=== PATIENT | male | born 1950 | race Caucasian/White ===

== ENCOUNTER 2017-07-19 01:19 | Observation (INO) ==
[2017-07-19] MEDS ORDERED: 0.9 % Sodium Chloride 500 ML IVC ONE (01:32)
[2017-07-19] MEDS ORDERED: Nitroglycerin 0.4 MG TAB.SUBL SL ONE (01:32)
--- NOTE | 2017-07-19 01:38 | Emergency Department Note ---
Disposition Clinical Impression: Unstable angina pectoris Disposition: Admitted As Inpatient Condition: Fair Referrals: NONE,PCP [Primary Care Provider] - Syed Wisdom [Family Provider] - Forms: ED Satisfaction Letter Time of Disposition: 02:30 Chest Pain HPI - General Chief Complaint: ED Chest Pain Stated Complaint: cp/sob Time Seen by Provider: 07/19/17 01:31 Source: patient Mode of arrival: ambulatory Limitations: no limitations Vital Signs Reviewed: Yes Nursing Notes Reviewed: Yes - History of Present Illness HPI Narrative: Patient presents to the ED with the chief complaint of chest pain and dyspnea. Patient has a remote history of WI about 10 years ago which did not require stent placement. States that a week ago he sneezed and he states that it felt like a hammer hit him in the middle of his chest. Ever since then he has been having the faculty managing his blood pressure has been having intermittent chest heaviness and tightness retrosternal and nonradiating. This is associated with shortness of breath, nausea and diaphoresis at times. States he does not remember what he felt like last time that he just does not feel right. Reports that it has been getting worse. He states that tonight he has been "popping aspirin." Stating that every time his blood pressure gets up, his pain gets worse and he takes an aspirin to try to get it down and it has not seemed to help. He is unsure how many aspirin is taken today. No melena, hematochezia, or hemoptysis. No fever, cough, or abdominal pain. No vomiting. Severity scale (1-10): 9 - Related Data Allergies Allergy/AdvReac Type Severity Reaction Status Date / Time No Known Allergies Allergy Verified 07/19/17 01:21 Review of Systems: As reviewed in the HPI. All other systems reviewed are negative or normal. Constitutional: Reports: as per HPI Eyes: Reports: as per HPI Cardiovascular: Reports: as per HPI Chest Pain PMH - Past Medical History Medical history: Reports: hypertension, myocardial infarction Psychiatric history: Reports: no psych history - Social History Smoking Status: Never smoker Alcohol use: Reports: none Drug use: Reports: none Physical Exam - General Limitations: no limitations General appearance: alert, in no apparent distress, other (Patient appears unwell) - Head Head exam: atraumatic, normocephalic, normal inspection - Eye Eye exam: Present: normal appearance, PERRL, EOMI - ENT ENT exam: normal exam, normal oropharynx, mucous membranes moist - Neck Neck exam: Present: normal inspection, full ROM, trachea midline - Chest Chest inspection: Present: normal inspection, symmetric chest wall rise - Respiratory Respiratory exam: Present: normal lung sounds bilaterally - Cardiovascular Cardiovascular exam: Present: regular rate, normal rhythm, normal heart sounds - Abdominal Exam Abdominal exam: Present: soft, Non-Tender. Absent: tenderness, distention, guarding, rebound, rigidity - Extremities Exam Extremities exam: Present: normal inspection, full ROM. Absent: tenderness, pedal edema - Neurological Exam Neurological exam: Present: alert, oriented X3 - Psychiatric Psychiatric exam: Present: normal affect, normal mood - Skin Skin exam: Present: warm, dry, intact, normal color Course Course Narrative: Patient presenting with concerning chest pain for ACS. Also complaining of some shortness of breath, so we will add on a d-dimer. Initial EKG is concerning for developing inferior ischemia. We will obviously check labs, repeat EKG and chest x-ray. We will give him nitroglycerin to see if this improves his pain. Patient does report that he is already taking multiple baby aspirins today, which seems to have totally well over his necessary dose so we will not give any additional aspirin. - Reevaluation(s) Reevaluation #1: 3 nitroglycerin the patient's pain from a 10 to a 2. We will admit. Troponins normal. EKG certainly did have concerning changes and patient will likely need heart catheter in the morning. Vital Signs Temperature 98.3 F 07/19/17 01:21 Pulse Rate 70 07/19/17 01:21 Respiratory Rate 16 07/19/17 01:21 Blood Pressure 167/95 07/19/17 01:21 O2 Sat by Pulse Oximetry 97 07/19/17 01:21 Temperature 98.3 F 07/19/17 01:21 Pulse Rate 63 07/19/17 01:42 Respiratory Rate 16 07/19/17 01:21 Blood Pressure 159/97 07/19/17 02:05 O2 Sat by Pulse Oximetry 97 07/19/17 01:42 Oxygen Delivery Oxygen Delivery Nasal Cannula Chest Pain - Medical Records Medical records reviewed: Yes I reviewed the patient's medical records. - Lab Data Lab results reviewed: Yes I reviewed the patient's lab results. Result diagrams: 07/19/17 01:36 07/19/17 01:36 Lab Results 07/19/17 07/19/17 07/19/17 Range/Units 01:36 01:36 01:36 WBC 13.6 H (4.3-11.1) K/mcL RBC 5.40 (4.19-5.50) M/mcL Hgb 15.8 (12.9-16.9) g/dL Hct 45.6 (37.5-50.1) % MCV 84.4 (83.0-100.0) fL MCH 29.3 (28.0-33.3) pg MCHC 34.6 (31.6-35.5) g/dL RDW 13.6 (11.5-14.5) % Plt Count 260 (140-400) K/mcL MPV 9.7 (9.4-12.4) fL Immature Gran % 0.3 (0-4) % Seg Neutrophils % 63.7 % Lymphocytes % 26.1 % Monocytes % 6.0 % Eosinophils % 3.3 % Basophils % 0.6 % Neutrophils # 8.7 (1.6-8.9) K/mcL Lymphocytes # 3.6 (0.6-4.6) K/mcL Monocytes # 0.8 (0.0-1.3) K/mcL Eosinophils # 0.5 (0.0-0.6) K/mcL Basophils # 0.1 (0.0-0.2) K/mcL PT 11.2 (9.4-12.1) Seconds INR 1.0 APTT 29.7 (26.0-36.0) Seconds D-Dimer 403 (0-500) ng/mLFEU Sodium (136-145) mEq/L Potassium (3.5-5.1) mEq/L Chloride (98-107) mEq/L Carbon Dioxide (23-29) mEq/L BUN (8-23) mg/dL Creatinine (0.70-1.30) mg/dL Est GFR ( Amer) (> 60) Est GFR (Non-Af Amer) (> 60) BUN/Creatinine Ratio (6-26) Glucose (70-105) mg/dL Calculated Osmolality (280-300) Calcium (8.6-10.3) mg/dL Troponin I (< 0.04) ng/mL B-Natriuretic Peptide 33 (Less than 100) pg/mL 07/19/17 Range/Units 01:36 WBC (4.3-11.1) K/mcL RBC (4.19-5.50) M/mcL Hgb (12.9-16.9) g/dL Hct (37.5-50.1) % MCV (83.0-100.0) fL MCH (28.0-33.3) pg MCHC (31.6-35.5) g/dL RDW (11.5-14.5) % Plt Count (140-400) K/mcL MPV (9.4-12.4) fL Immature Gran % (0-4) % Seg Neutrophils % % Lymphocytes % % Monocytes % % Eosinophils % % Basophils % % Neutrophils # (1.6-8.9) K/mcL Lymphocytes # (0.6-4.6) K/mcL Monocytes # (0.0-1.3) K/mcL Eosinophils # (0.0-0.6) K/mcL Basophils # (0.0-0.2) K/mcL PT (9.4-12.1) Seconds INR APTT (26.0-36.0) Seconds D-Dimer (0-500) ng/mLFEU Sodium 139 (136-145) mEq/L Potassium 3.9 (3.5-5.1) mEq/L Chloride 107 (98-107) mEq/L Carbon Dioxide 23 (23-29) mEq/L BUN 12 (8-23) mg/dL Creatinine 0.90 (0.70-1.30) mg/dL Est GFR ( Amer) > 60 (> 60) Est GFR (Non-Af Amer) > 60 (> 60) BUN/Creatinine Ratio 13 (6-26) Glucose 98 (70-105) mg/dL Calculated Osmolality 288 (280-300) Calcium 9.2 (8.6-10.3) mg/dL Troponin I < 0.03 (< 0.04) ng/mL B-Natriuretic Peptide (Less than 100) pg/mL - Radiology Data Radiology results reviewed: Yes I reviewed the patient's radiology results. - EKG Data EKG attestation: Yes I reviewed and interpreted this EKG. EKG results narrative: Sinus rhythm, rate 77, NE interval 146, QRS 89, QTC 390, deep inverted T waves in lead 1 and aVL with some ST segment depression in lead 1 and laterally. Repeat EKG @ 01:45 shows worsening depression in lead 1 and aVL as well as just under 1 mm elevation in lead 3. Does not meet STEMI criteria at this point. However, if his pain changes or does not improve we will repeat an EKG. Heart Score - Score History: Highly Suspicious EKG: Significant ST-Depression Age: 45-65 Risk Factors: Equal/Greater than 3 risk factor or history of atherosclerotic disease Troponin: Less than normal limit HEART Score Total: 7
[2017-07-19 01:48] LABS: Basophils # 0.1 K/mcL (0.0-0.2); Basophils % 0.6 %; Eosinophils # 0.5 K/mcL (0.0-0.6); Eosinophils % 3.3 %; Hematocrit 45.6 % (37.5-50.1); Hemoglobin 15.8 g/dL (12.9-16.9); Immature Granulocytes % 0.3 % (0-4); Lymphocytes # 3.6 K/mcL (0.6-4.6); Lymphocytes % 26.1 %; Mean Corpuscular HGB Conc 34.6 g/dL (31.6-35.5); Mean Corpuscular Hemoglobin 29.3 pg (28.0-33.3); Mean Corpuscular Volume 84.4 fL (83.0-100.0); Mean Platelet Volume 9.7 fL (9.4-12.4); Monocytes # 0.8 K/mcL (0.0-1.3); Neutrophils # 8.7 K/mcL (1.6-8.9); Platelet Count 260 K/mcL (140-400); Red Cell Distribution Width 13.6 % (11.5-14.5); Segmented Neutrophils % 63.7 %
[2017-07-19 01:55] LABS: Prothrombin Time 11.2 Seconds (9.4-12.1)
[2017-07-19 01:57] LABS: Activated Partial Thrombo Time 29.7 Seconds (26.0-36.0)
[2017-07-19 02:09] LABS: BUN/Creatinine Ratio 13 (6-26); Blood Urea Nitrogen 12 mg/dL (8-23); Calcium 9.2 mg/dL (8.6-10.3); Carbon Dioxide 23 mEq/L (23-29); Chloride 107 mEq/L (98-107); Glucose 98 mg/dL (70-105); Osmolality,Calculated 288 (280-300); Potassium 3.9 mEq/L (3.5-5.1); Sodium 139 mEq/L (136-145); eGFR For African Americans > 60 (> 60); eGFR For Non-African Americans > 60 (> 60)
[2017-07-19 02:10] LABS: Troponin I < 0.03 ng/mL (< 0.04)
[2017-07-19 02:38] LABS: Salicylate < 2.5 mg/dL (15.0-30.0)
--- NOTE | 2017-07-19 03:16 | Emergency Department Note ---
Disposition Clinical Impression: Unstable angina pectoris Disposition: Admitted As Inpatient Condition: Fair General Adult HPI - General Chief complaint: ED Chest Pain Stated complaint: cp/sob Time Seen by Provider: 07/19/17 01:31 Source: patient Mode of arrival: ambulatory Limitations: no limitations Nursing Notes Reviewed: Yes Vital Signs Reviewed: Yes - History of Present Illness Pain Scale: 9 - Related Data Allergies Allergy/AdvReac Type Severity Reaction Status Date / Time No Known Allergies Allergy Verified 07/19/17 01:21 Constitutional: Reports: as per HPI Eyes: Reports: as per HPI Cardiovascular: Reports: as per HPI Past Medical History - Past Medical History Medical history: Reports: hypertension, myocardial infarction Psychiatric history: Reports: no psych history - Social History Smoking Status: Never smoker Smokeless Tobacco Status: No Alcohol use: Reports: none Drug use: Reports: none Physical Exam - General Limitations: no limitations General appearance: alert, in no apparent distress, other (Patient appears unwell) Course Vital Signs Temperature 98.3 F 07/19/17 01:21 Pulse Rate 70 07/19/17 01:21 Respiratory Rate 16 07/19/17 01:21 Blood Pressure 167/95 07/19/17 01:21 O2 Sat by Pulse Oximetry 97 07/19/17 01:21 Temperature 98.3 F 07/19/17 01:21 Pulse Rate 63 07/19/17 01:42 Respiratory Rate 16 07/19/17 01:21 Blood Pressure 159/97 07/19/17 02:05 O2 Sat by Pulse Oximetry 97 07/19/17 01:42 Oxygen Delivery Oxygen Delivery Nasal Cannula Medical Decision Making - Lab Data Result diagrams: 07/19/17 01:36 07/19/17 01:36 Lab Results 07/19/17 07/19/17 07/19/17 Range/Units 01:36 01:36 01:36 WBC 13.6 H (4.3-11.1) K/mcL RBC 5.40 (4.19-5.50) M/mcL Hgb 15.8 (12.9-16.9) g/dL Hct 45.6 (37.5-50.1) % MCV 84.4 (83.0-100.0) fL MCH 29.3 (28.0-33.3) pg MCHC 34.6 (31.6-35.5) g/dL RDW 13.6 (11.5-14.5) % Plt Count 260 (140-400) K/mcL MPV 9.7 (9.4-12.4) fL Immature Gran % 0.3 (0-4) % Seg Neutrophils % 63.7 % Lymphocytes % 26.1 % Monocytes % 6.0 % Eosinophils % 3.3 % Basophils % 0.6 % Neutrophils # 8.7 (1.6-8.9) K/mcL Lymphocytes # 3.6 (0.6-4.6) K/mcL Monocytes # 0.8 (0.0-1.3) K/mcL Eosinophils # 0.5 (0.0-0.6) K/mcL Basophils # 0.1 (0.0-0.2) K/mcL PT 11.2 (9.4-12.1) Seconds INR 1.0 APTT 29.7 (26.0-36.0) Seconds D-Dimer 403 (0-500) ng/mLFEU Sodium (136-145) mEq/L Potassium (3.5-5.1) mEq/L Chloride (98-107) mEq/L Carbon Dioxide (23-29) mEq/L BUN (8-23) mg/dL Creatinine (0.70-1.30) mg/dL Est GFR ( Amer) (> 60) Est GFR (Non-Af Amer) (> 60) BUN/Creatinine Ratio (6-26) Glucose (70-105) mg/dL Calculated Osmolality (280-300) Calcium (8.6-10.3) mg/dL Troponin I (< 0.04) ng/mL B-Natriuretic Peptide 33 (Less than 100) pg/mL Salicylates (15.0-30.0) mg/dL 07/19/17 Range/Units 01:36 WBC (4.3-11.1) K/mcL RBC (4.19-5.50) M/mcL Hgb (12.9-16.9) g/dL Hct (37.5-50.1) % MCV (83.0-100.0) fL MCH (28.0-33.3) pg MCHC (31.6-35.5) g/dL RDW (11.5-14.5) % Plt Count (140-400) K/mcL MPV (9.4-12.4) fL Immature Gran % (0-4) % Seg Neutrophils % % Lymphocytes % % Monocytes % % Eosinophils % % Basophils % % Neutrophils # (1.6-8.9) K/mcL Lymphocytes # (0.6-4.6) K/mcL Monocytes # (0.0-1.3) K/mcL Eosinophils # (0.0-0.6) K/mcL Basophils # (0.0-0.2) K/mcL PT (9.4-12.1) Seconds INR APTT (26.0-36.0) Seconds D-Dimer (0-500) ng/mLFEU Sodium 139 (136-145) mEq/L Potassium 3.9 (3.5-5.1) mEq/L Chloride 107 (98-107) mEq/L Carbon Dioxide 23 (23-29) mEq/L BUN 12 (8-23) mg/dL Creatinine 0.90 (0.70-1.30) mg/dL Est GFR ( Amer) > 60 (> 60) Est GFR (Non-Af Amer) > 60 (> 60) BUN/Creatinine Ratio 13 (6-26) Glucose 98 (70-105) mg/dL Calculated Osmolality 288 (280-300) Calcium 9.2 (8.6-10.3) mg/dL Troponin I < 0.03 (< 0.04) ng/mL B-Natriuretic Peptide (Less than 100) pg/mL Salicylates < 2.5 L (15.0-30.0) mg/dL Attestation Statement - Attestation Attestation: I, Finn Iraheta MD, personally evaluated this patient and discussed their management with the resident physician. I reviewed the resident's note and agree with the documented findings, medical decision making, and plan of care. 66-year-old male presents to the emergency department with a complaint of increased generalized weakness and fatigue and shortness of breath over the past 3-4 months which has been getting progressively worse. Over the past week the shortness of breath has been significantly worse. Some chest discomfort which he describes as just a tightness and difficulty breathing. Earlier this evening he did have some discomfort in the left side of his neck and down the left arm. Symptoms are worse with exertion. Patient does have a history of a coronary artery stent about 10 years ago. He was on blood pressure medication in the past but did not follow-up. He states he has not seen a doctor in probably 8 or 9 years. He also complains that tonight his blood pressure was running high, as high as 216/105. He was taking low-dose aspirin intermittently for his blood pressure but states it did not seem to be helping his blood pressure tonight. On examination patient is a well-developed well-nourished male in no acute distress. He is alert and oriented 3. There is no cyanosis or diaphoresis. Chest is nontender to palpation. Breath sounds are clear and equal bilaterally. Heart regular rate and rhythm. Abdomen soft and nontender with normal bowel sounds. No pedal edema. EKG shows a normal sinus rhythm with ventricular rate of 77. There is ST segment depression in lead 1 and aVL as well as V3 through V6 which is new compared to prior EKG dated 12/03/2008. There are also inverted T waves in lead 1 and aVL which are new. About a half hour after arrival patient complained of some increased pain and a repeat EKG was obtained which showed a normal sinus rhythm with ventricular rate of 62. The T-wave inversions and ST depression in lead 1 and aVL are still present. Changes in V3 through V6 are slightly improved however now there is slight ST elevation in lead 3 only. This is not more than 1 mm. Labs reviewed and unremarkable. Troponin normal. Chest x-ray negative. Patient received sublingual nitroglycerin 3 with complete relief of his chest tightness and dyspnea. The hospitalist, Dr. Kiser, was consulted and accepted admission of the patient.
[2017-07-19 03:26] LABS: Bilirubin,Urine Negative (Negative); Blood,Urine Negative (Negative); Clarity,Urine Clear (Clear); Color,Urine Yellow (Yellow); Glucose,Urine (UA) Normal (Normal); Ketones,Urine Negative (Negative); Leukocyte Esterase,Urine Negative (Negative); Nitrite,Urine Negative (Negative); Protein,Urine Negative (Neg-Trace); Specific Gravity,Urine 1.026 (1.010-1.025); Urobilinogen,Urine Normal (Normal)
[2017-07-19] MEDS ORDERED: Acetaminophen 325 MG TABLET PO PRN (04:44)
[2017-07-19] MEDS ORDERED: *HR* FentaNYL (PF) 100 MCG/2 ML VIAL IVP PRN (04:44)
[2017-07-19] MEDS ORDERED: *HR* Heparin 5,000 UNIT/ML VIAL IVP PRN ×2 (04:44)
[2017-07-19] MEDS ORDERED: Naloxone 0.4 MG/ML INJ IVP PRN (04:44)
[2017-07-19] MEDS ORDERED: *HR* Heparin 5,000 UNIT/ML VIAL IVP ONE (04:44)
[2017-07-19] MEDS ORDERED: Heparin 25,000 UNIT/500 ML D5W 25,000 UNIT/500 ML BAG IVC SCH (04:45)
[2017-07-19] MEDS ORDERED: Nitroglycerin 0.4 MG TAB.SUBL SL PRN (04:55)
--- NOTE | 2017-07-19 04:58 | Internal Med History&Physical ---
Date of Encounter: 07/19/17 Time of Encounter: 04:15 Internal Medicine - H&P: HPI Chief complaint: chest pain Admitted From: Emergency Dept Plans for Post Hospital Care: Home History of present illness: Mr. Alvarado is a 66 year old male who presents to the ER tonight with complaints of substernal chest pain, pressure, and elevated blood pressure. He has been having these symptoms off and on for the last several weeks. However, over the last 24 hours, he has developed severe substernal chest pain and pressure, diaphoresis, dyspnea, and nausea. Symptoms are relieved by complete rest in his recliner. With any exertion whatsoever, he develops significant chest tightness, dyspnea, diaphoresis, and radiating pain to his left arm. In hopes of alleviating his symptoms, he ingested a whole bottle of baby aspirin over the last 24 hours. The bottle had roughly 30 pills of 81 mg dose of aspirin. Because he could get any relief, he came to the ER for evaluation. In the ER, he received 3 doses of nitroglycerin with relief of his chest pain. He was subsequently admitted to hospitalist service. Upon my assessment, patient is chest pain-free now. He and his both reiterate above history. He has a history of coronary artery disease and required PTCA and stent 10 years ago at [facility] in [place]. He was on medication for less than 1 year after his PCI/stent. He stopped all medications at that point and has been symptom-free until recently. He has adopted a healthier lifestyle the last 10 years including diet and exercise. He does not smoke or drink. He eats a high vegetable diet. He has not followed up with a physician in almost 10 years since his PCI/stent. Past Med Surg Social Fam HX - Past Medical History Attestation: Yes The following information was validated with the patient. Source: patient, obtained from family, other (ER records) Medical history: hypertension, myocardial infarction Psychiatric history: no psych history - Past Surgical History Surgical History: angioplasty/stent, cholecystectomy - Social History Smoking Status: Never smoker Smokeless Tobacco Status: No Alcohol use: none Drug use: none Current living situation: Home, With Family Activity Level: Very active Recent Out of Country Travel Within the Last 8 Weeks: No - Family History Mother Hx Family Cardiac Disorders: Yes Father Hx Family Cardiac Disorders: No Internal Medicine - H&P: Meds 3 Allergy/AdvReac Type Severity Reaction Status Date / Time No Known Allergies Allergy Verified 07/19/17 01:21 - Constitutional Constitutional: fatigue, no chills, no fever(s), no night sweats - EENT Eyes: no blurry vision, no change in vision Ears: no ear pain, no tinnitus Nose, mouth and throat: no nasal congestion, no nasal discharge, no sinus pressure, no sore throat - Cardiovascular Cardiovascular ROS IM: chest pain, diaphoresis, dyspnea, dyspnea on exertion, no edema, no lightheadedness, no orthopnea, no palpitations, no paroxysmal nocturnal dyspnea, no syncope - Respiratory Respiratory: no cough, no hemoptysis, no chest congestion, no excessive phlegm production, no change in phlegm color - Gastrointestinal Gastrointestinal: no abdominal pain, no diarrhea, no hematemesis, no hematochezia, no melena, no vomiting - Genitourinary Genitourinary ROS male: no dysuria, no flank pain, no hematuria - Musculoskeletal Musculoskeletal ROS IM: no arthralgias, no back pain - Integumentary Integumentary IM: no rash, no jaundice - Neurological Neurological ROS: no dizziness, no focal weakness, no frequent falls, no headache(s) - Psychiatric Psychiatric: no anxiety, no depression - Endocrine Endocrine IM: no polydipsia, no polyuria - Hematologic/Lymphatic Hematologic/Lymphatic: no easy bruising, no lymphadenopathy - Allergic/Immunologic Allergic/Immunologic: no wheezing, no GI upset with certain foods - Constitutional Vitals: Temp Pulse Resp BP Pulse Ox 98.1 F 54 18 138/86 94 07/19/17 04:01 07/19/17 04:01 07/19/17 04:01 07/19/17 04:01 07/19/17 04:01 General appearance: Present: cooperative, A&O X 3, pleasant, no acute distress, answers questions appropriately - Head Head exam: Present: atraumatic, normal inspection - Eye Eye exam: Present: EOMI, normal appearance, PERRL. Absent: scleral icterus Pupils: Present: normal accommodation - ENT ENT exam: Present: mucous membranes moist, normal exam, normal oropharynx - Neck Neck exam general surgery: Present: full ROM, supple. Absent: lymphadenopathy, tenderness, nuchal rigidity, thyromegaly - Respiratory Respiratory exam: Present: CTAB. Absent: chest wall tenderness, rales, respiratory distress, rhonchi, wheezes - Cardiovascular Cardiovascular exam: Present: RRR, +S1, +S2. Absent: diastolic murmur, JVD, systolic murmur - GI/Abdominal GI/Abdominal exam: Present: normal bowel sounds, soft. Absent: guarding, hepatomegaly, mass, rebound, splenomegaly, tenderness - Extremities Exam Extremities exam: Present: full ROM, normal capillary refill, warm, radial pulses palpable and symmetrical. Absent: calf tenderness, joint swelling - Back Exam Back exam: Absent: CVA tenderness (L), CVA tenderness (R) - Neurological Exam Neurological exam: Present: alert, oriented X3, no focal deficits, strengths equal and symetr throughout - Psychiatric Psychiatric exam: Present: normal affect, normal mood - Skin Skin exam: Present: dry, warm. Absent: rash Internal Med - H&P Results - Labs CBC & Chem 7: 07/19/17 01:36 07/19/17 01:36 Labs: Urine 07/19/17 Range/Units 03:14 Urine Color Yellow (Yellow) Urine Clarity Clear (Clear) Urine pH 6.0 (5.0-8.0) pH Units Ur Specific [place] 1.026 H (1.010-1.025) Urine Protein Negative (Neg-Trace) mg/dL Urine Glucose (UA) Normal (Normal) mg/dL - EKG Data -: EKG Interpreted by Myself - EKG Data Prior EKG available for review: yes When compared to previous EKG: there are significant changes EKG comments: 07/19/17 05:03 NSR with lateral wall ischemic changes - Diagnostic Studies Chest x-ray Status: image reviewed by me (negative) - VTE Reasons for not Prescribing Prophylaxis: Not indicated-Anticoagulated or INR therapeutic - Assessment and plan (1) Unstable angina pectoris Current Visit: Yes Status: Acute Assessment and plan: 1. Will start heparin drip per ACS protocol. 2. SL NTG PRN chest pain. 3. Start STATIN. 4. Keep npo for probable LHC. 5. Consult cardiology for probable LHC. 6. Cycle troponins, EKG's, and order ECHO. 7. Avoid aspirin today as he ingested an excessive amount in the last 24 hours. 8. No BB as he is bradycardic (HR50's). (2) Accidental aspirin overdose Current Visit: Yes Status: Acute Assessment and plan: 1. Initial Salicylate level undetectable. 2. Repeat salicylate level with next troponin level at 7:30. 3. Called and discussed with Poison Control -- if next level is stable/ undetectable, no further monitoring necessary as it peaks in 6 hours. Last ASA ingestion roughly 11pm to midnight tonight. 4. Patient advised not to ingest that much aspirin in the future. Qualifiers: Encounter type: initial encounter Qualified Code(s): T39.011A - Poisoning by aspirin, accidental (unintentional), initial encounter (3) DVT prophylaxis Current Visit: Yes Status: Acute Assessment and plan: 1. Heparin gtt as above.
[2017-07-19] MEDS: 0.9 % Sodium Chloride w KCl 20 MEQ/1,000 ML MLS IVC SCH ×2 (06:19→17:26)
[2017-07-19] MEDS ORDERED: *HR* OxyCODONE Immed Rel 5 MG TABLET PO PRN (10:41)
--- NOTE | 2017-07-19 10:52 | Cardiology Consult Note ---
<Kristin Ballesteros Lucia - Last Filed: 07/19/17 10:48> Date of Encounter: 07/19/17 Time of Encounter: 09:30 Assessment and Plan (1) Unstable angina pectoris Current Visit: Yes Status: Acute Per cardiology: -Concerning symptoms with exertional chest pain with minimal exertion, relieved with rest. -Troponins negative x3. -ECG with new T wave inversions and mild ST depression. -Denies current chest pain. -TTE pending. -On statin, heparin drip. -Of note, BP hypertensive on admission, currently 140s systolic. -OF note, was taking multiple ASA at home for chest pain. -Anticipate LHC today for unstable angina, ECG changes. Risks versus benefits of LHC explained to patient. Patient agreeable to proceed. -Per discussion with anand Causey to start ASA, hemoglobin stable, salicylate level low. -Will add beta matthew. -Further recommendations pending LHC and TTE. (2) CAD (coronary artery disease) Current Visit: Yes Status: Chronic Per cardiology: -Known CAD s/p PCI about 10 years ago. -Plan for LHC today as above. Qualifiers: Coronary Disease-Associated Artery/Lesion type: [place] artery [place] vs. transplanted heart: [place] heart Associated angina: with unstable angina Qualified Code(s): I25.110 - Atherosclerotic heart disease of [place] coronary artery with unstable angina pectoris Discussion w patient/family: The assessment and plan as outlined above was discussed with the patient who expressed understanding and agreement. All questions were answered. Thank you for involving us in the care of your patient. Please call with any questions. Discussed and reviewed with . History of Present Illness Consult date: 07/19/17 Requesting physician: Catrachito Mejia Consult reason: unstable angina Chief complaint: chest pain History of present illness: Mr. Alvarado is a 66 year old male with a relevant past medical history of CAD s/p PCI about 10 years ago, HTN, hyperlipidemia. Patient presented to [facility] with complaints of worsening chest pain with exertion, increased shortness of breath , and increased fatigue. Patient reports chest pain occurs with exertion and is relieved with rest. Patient also reports has been taking multiple aspirins for his pain. Patient reports symptoms have progressed over the past 2-3 weeks and now states he is unable to walk to the bathroom without chest pain. Denies current chest pain. Past Med Surg Social Fam HX - Past Medical History Attestation: Yes The following information was validated with the patient. Source: patient Medical history: coronary artery disease, hyperlipidemia, hypertension, myocardial infarction Psychiatric history: no psych history - Past Surgical History Surgical History: angioplasty/stent, cholecystectomy - Social History Smoking Status: Never smoker Smokeless Tobacco Status: No Alcohol use: none Drug use: none - Family History Mother Hx Family Cardiac Disorders: Yes Father Hx Family Cardiac Disorders: No Medications and Allergies No Known Home Drugs 07/19/17 [History] 3 Allergy/AdvReac Type Severity Reaction Status Date / Time No Known Allergies Allergy Verified 07/19/17 01:21 All Systems Review: The remainder of the systems were reviewed and are negative - Constitutional Constitutional: fatigue - Cardiovascular Cardiovascular: as per HPI, chest pain with exertion, dyspnea on exertion Physical Examination Vital Signs, Last 4 Hours Temp Pulse Resp BP Pulse Ox 07/19/17 10:05 98.4 F 60 16 148/88 96 07/19/17 06:55 98.1 F 56 15 146/86 95 General: Conversant, No Apparent Distress HEENT: Atraumatic, Normocephaly, Mucus Membranes Moist Neck: No JVD, Normal carotid pulses Cardiac: Reg Rate and Rhythm, Normal S1 and S2, No Murmur Lungs: Normal Breath Sounds, No Wheeze, Rales, Rhonchi Neuro: Alert and responsive, No focal deficits noted Abdomen: Soft, Non-Tender Skin: No rashes noted on visualized skin Musculoskeletal: No Chest Wall Tenderness Extremities: No Clubbing, No Cyanosis, No Edema, Normal Pulses Results 07/19/17 01:36 07/19/17 01:36 Lab Results Impressions Chest X-Ray 07/19/17 01:32 IMPRESSION: Negative portable chest. D/ / Ronak Frey MD / Ronak Frey MD Interpreting Provider: Ronak Frey MD Active Medications Acetaminophen (Tylenol) 650 mg PO Q6H PRN PRN Reason: Mild Pain/Fever Stop: 01/18/18 04:45 Atorvastatin Calcium (Lipitor) 20 mg PO HS ABBY Stop: 01/18/18 21:01 Heparin Sodium (Porcine) (Heparin) 4,000 unit IVP Q6HR PRN PRN Reason: SEE COMMENTS Stop: 01/18/18 04:45 Heparin Sodium (Porcine) (Heparin) 2,000 unit IVP Q6H PRN PRN Reason: SEE COMMENTS Stop: 01/18/18 04:45 Potassium Chloride/Sodium Chloride (Kcl 20 Meq In 0.9% Sodium Chloride) 20 meq in 1,000 mls @ 100 mls/hr IVC .Q10H ABBY Stop: 07/20/17 00:44 Last Admin: 07/19/17 06:19 Dose: 100 mls/hr Heparin Sodium/Dextrose (Heparin 25,000 Unit/500 Ml D5w) 25,000 unit in 500 mls @ 20.042 mls/hr IVC .Q24H ABBY; 8.4 UNIT/KG/HR PRN Reason: Protocol Stop: 01/18/18 04:46 Last Admin: 07/19/17 05:49 Dose: 8.4 unit/kg/hr, 20.042 mls/hr Naloxone HCl (Narcan) 0.4 mg IVP Q2MIN PRN PRN Reason: SEE COMMENTS Stop: 01/18/18 04:45 Nitroglycerin (Nitroglycerin) 0.4 mg SL Q5MIN PRN PRN Reason: Chest Pain Stop: 01/18/18 04:56 Oxycodone HCl (Roxicodone) 5 mg PO Q4HR PRN; Protocol PRN Reason: Moderate to Severe Pain Stop: 01/18/18 10:42 Laboratory Tests 07/19/17 07/19/17 07/19/17 01:36 01:36 07:28 WBC 13.6 H Hgb 15.8 Plt Count 260 Potassium 3.9 Creatinine 0.90 Troponin I < 0.03 < 0.03 - Imaging and Cardiology Chest Xray: report reviewed Echo: pending - EKG Interpretation EKG results cardiology: personally reviewed (ECG with SR, HR 77. New T wave inversions noted and mild ST depressions.), other (Telemetry reviewed with average HR previous 12 hours 61, SR. PVCs and PACs noted.) Consult Discharge Plan - Plan Referrals: NONE,PCP [Primary Care Provider] - Syed Wisdom [Family Provider] - <Jennifer Mcknight - Last Filed: 07/19/17 12:04> Date of Encounter: 07/19/17 - Attending Attestation I examined this patient and my medical decision-making was reviewed with the RICE FIELD WORKER. I agree with the documented findings, disposition and treatment plan as described except to the extent set forth below. Mr. Alvarado presents with exertional chest pain and SOB. Workup has demonstrated ECG changes. He has a remote history of PCI and has been poorly compliant with medication and lifestyle. We discussed proceeding with [facility]. The R/B/A of the procedure were discussed with the patient. He expressed understanding of the risks. He would like to proceed. Renal function is normal. Hgb, Plt count normal. Patient states that he would be compliant with DAPT and is interested in making lifestyle changes. Assessment and Plan Discussion w patient/family: The assessment and plan as outlined above was discussed with the patient and/or family members who expressed understanding and agreement. All questions were answered. Thank you for involving us in the care of your patient. Please call with any questions. History of Present Illness History of present illness: Mr. Alvarado is a 66 year old male All Systems Review: The remainder of the systems were reviewed and are negative Physical Examination Vital Signs, Last 4 Hours Temp Pulse Resp BP Pulse Ox 07/19/17 10:05 98.4 F 60 16 148/88 96 07/19/17 09:00 96 Results 07/19/17 01:36 07/19/17 01:36 Lab Results 07/19/17 07:28 Troponin I < 0.03
--- NOTE | 2017-07-19 11:24 | Pre-Sedation Evaluation ---
Pre-sedation evaluation - Pre-sedation checklist Date of procedure: 07/19/17 Procedure: LHC Recent Vitals: Last Vital Signs Temp 98.4 F 07/19/17 10:05 Pulse 60 07/19/17 10:05 Resp 16 07/19/17 10:05 BP 148/88 07/19/17 10:05 Pulse Ox 96 07/19/17 10:05 ASA Classification *see protocol: CLASS II-Mild systemic disease
[2017-07-19] MEDS: Aspirin Enteric Coated 81 MG Tablet PO SCH (11:35)
[2017-07-19] MEDS: Metoprolol XL (24 HR) Succ 25 MG TAB.ER.24H PO SCH (11:35)
--- NOTE | 2017-07-19 11:48 | Event Note ---
Date of Encounter: 07/19/17 Time of Encounter: 11:00 Patient complains of exertional angina and dyspnea. Cardiology evaluated patient and will proceed with left heart catheterization. Continue IV heparin. Follow results of cardiac catheterization. Continue aspirin. Check lipid profile.
[2017-07-19 13:01] LABS: Troponin I < 0.03 ng/mL (< 0.04)
[2017-07-19 13:14] LABS: Thyroid Stimulating Hormone 1.149 mcIU/mL (0.340-5.600)
[2017-07-19] MEDS ORDERED: ISOVUE-370 200 ML INFUS..BTL IV ONE (13:27)
[2017-07-19] MEDS ORDERED: Nitroglycerin 1,000 MCG/10 ML VIAL IV ONE (13:27)
[2017-07-19] MEDS ORDERED: Heparin 1,000 UNITS/500 mL 500 ML ONE (13:27)
[2017-07-19] MEDS ORDERED: 0.9 % Sodium Chloride 1,000 ML ONE ×2 (13:27→13:50)
[2017-07-19] MEDS ORDERED: *HR* Heparin 10,000 UNIT/10 ML VIAL ONE (13:27)
[2017-07-19] MEDS ORDERED: *HR* Midazolam HCl 2 MG/2 ML VIAL ONE (13:52)
[2017-07-19] MEDS ORDERED: *HR* FentaNYL (PF) 100 MCG/2 ML VIAL ONE (13:53)
--- NOTE | 2017-07-19 14:30 | Event Note ---
Date of Encounter: 07/19/17 Time of Encounter: 14:28 - Cardiology Event Note Per discussion with , moderate, non-obstructive CAD on [facility]. No intervention needed. Cardiology will sign off and will follow in outpatient setting. Follow up set. Continue ASA, statin, beta matthew.
--- NOTE | 2017-07-19 14:41 | Invasive Diagnostic Lab Proc ---
Name: Jaret Alvarado Date of Study: 07/19/2017 Date: 1950 Ht: 75.0in Medical Record#: [id number] Age: 66 Wt: 262.57lb Gender: Male BSA: 2.46 Order #: [id number] BMI: 32.82 Physicians Procedure Physician: Jia Leahy MD Referring MD: Referring MD: Staff Name Position Time In Emelyn Siu RN Fruit Distributor 01:48 PM Ta Mcneal RT (R) Monitor 01:48 PM Celeste Vaughn RT (R) Scrub 01:48 PM Indications Indication Unstable Angina Procedures Performed Procedure L HRT ARTERY/VENTRICLE ANGIO Pre-Procedure Checklist Informed consent is complete signed and on chart. H&P is on chart. ID band is on and ID verified with patient. Patient NPO for procedure The procedure was described for the patient and questions were answered. Blood Pressure: 186/113 ECG is on chart. Rhythm: NSR Plan of Care Patient will tolerate the procedure without complications. Adequate level of comfort will be maintained. Hemodynamics will remain stable Patient will recover from procedure without complications. Respiratory function will be maintained. Cardiac rhythm will remain stable. Patient temperature will be maintained. Patient and/or family have verbalized understanding of the procedure. Patient Education Chief Complaint/Reason for Test: Cardiac Cath Developmental Category: Geriatric (65+ years) Developmentally Appropriate for Age: Yes Learning Barriers: None Education Needs: Procedure Education Method: Verbal Information Taught: Cardiac Cath Educational Evaluation: Able to repeat information Intravenous Access Time IV Size Location DC'd Fluid/Drip Rate Units RN 01:48 PM 20g 1 1/" Patent On Arrival Lt Arm 0.9NaCl 25 ml/hr Emelyn Siu RN Allergies No Known Allergies NKDA Vital Signs Time BP (mmHg) HR (bpm) O2 Sat. RR (bpm) LOC 01:49 PM 186 / 113 76 100 % 18 5 = Fully awake and oriented or at pre-proc level 01:49 PM / % 4 = Oriented but drowsy 02:04 PM / % 4 = Oriented but drowsy 01:56 PM 186 / 113 75 99 % 02:00 PM 176 / 103 77 99 % 02:05 PM 169 / 99 77 98 % 02:10 PM 167 / 96 73 96 % 02:15 PM 165 / 94 80 96 % 02:20 PM 161 / 87 72 98 % 02:25 PM 164 / 95 67 98 % Procedural Medications Time Medication Dose Units Method Given By 01:57 PM Versed 1 mg Intravenous Emelyn Siu RN 01:57 PM Fentanyl 50 mcg Intravenous Emelyn Siu RN 01:57 PM Oxygen 2 L/min nasal cannula Emelyn Siu RN 02:02 PM Versed 0.5 mg Intravenous Emelyn Siu RN 02:03 PM Fentanyl 25 mcg Intravenous Emelyn Siu RN 02:03 PM Lidocaine 2% 10 ml Subcutaneous Jia Leahy MD ASA Classification: CLASS II- Mild systemic disease (i.e. well-controlled diabetes, hypertension, asthma, cigarette smoking) Mickie Score Preprocedure Postprocedure Activity 2- Moves 4 extremities sustained head lift Activity 2- Moves 4 extremities sustained head lift Circulation 2- SBP +/= 20 points of pre-anesthetic level Circulation 2- SBP +/= 20 points of pre-anesthetic level Consciousness 2- Awake and alert oriented x 3 Consciousness 2- Awake and alert oriented x 3 O2 Saturation 2- Able to maintain O2 satruation of 92% on room air O2 Saturation 2- Able to maintain O2 satruation of 92% on room air Respiratory 2- Able to deep breathe and cough well Respiratory 2- Able to deep breathe and cough well Total Score 10 Total Score 10 Contrast Agent: Isovue Diagnostic Contrast: 93 ml Total Contrast: 93 ml Fluoro Dose: 698 mGy Procedure Log Time Note Enter By 01:47 PM CathStat 01:48 PM Pt arrived to slab lifting supervisor 2 at 13:48 tsites 01:48 PM Emelyn Siu RN Position: Fruit Distributor Time in: 13:48 tsites 01:48 PM Ta Mcneal RT (R) Position: Monitor Time in: 13:48 tsites 01:48 PM Celeste Vaughn RT (R) Position: Scrub Time in: 13:48 tsites 01:48 PM Patient charges- Angio tray pack, Navilyst 3mm J, Pulse Oximetry and ACIST tubing and transducer tsites 01:49 PM Time: 13:48 Patient comfortable and pain free: Yes tsites 01:49 PM Time: 13:49LOC: 5 = Fully awake and oriented or at pre-proc level tsites 01:51 PM Physician arrived 13:51 tsites 01:51 PM Meet and greet completed tsites 01:51 PM Sign in performed according to hospital policy. tsites 01:51 PM Procedure start 13:51 tsites 01:51 PM ASA Class CLASS II- Mild systemic disease (i.e. well-controlled diabetes, hypertension, asthma, cigarette smoking) tsites 01:51 PM Hair removed from procedure site in procedure lab using clippers. Bilateral groin prepped with Chloraprep by Celeste Vaughn), then patient was draped. Skin intact. tsites 01:52 PM Case Delayed No tsites :52 PM Clinical Presentation: Unstable angina tsites 01:54 PM Vitals capture started with the following parameters, Patient=Adult, Interval=5 min, Initial Kqihgquz=495 mmHg, Deflation Rate=5 mmHg, Cuff placed on Right Arm 01:55 PM Recorded ECG: HR=85 Condition=Condition 1 01:56 PM HR=75 bpm, HBEW=567/113 mmhg, SpO2=99.0 % 01:57 PM Time: 13:57 Versed 1 mg Intravenous Given by Emelyn Siu RN tsites :57 PM Time: 13:57 Fentanyl 50 mcg Intravenous Given by Emelyn Siu RN tsites 01:57 PM Time: 13:57 Oxygen on at 2 L/min per nasal cannula by Emelyn Siu RN tsites 02:00 PM HR=77 bpm, BBNU=934/103 mmhg, SpO2=99.0 % 02:02 PM Time out performed according to hospital policy tsites 02:03 PM Time: 14:02 Versed 0.5 mg Intravenous Given by Emelyn Siu RN tsites 02:03 PM Time: 14:03 Fentanyl 25 mcg Intravenous Given by Emelyn Siu RN tsites 02:03 PM Time: 14:03 10 ml Lidocaine 2% to right groin Subcutaneous Given by Jia Leahy MD tsites 02:04 PM Micro-Introducer Kit utilized for sheath placement tsites 02:04 PM Time: 13:49LOC: 4 = Oriented but drowsy tsites 02:04 PM Time: 13:49 Patient comfortable and pain free: Yes tsites 02:04 PM Pressure channel 1 zeroed. 02:05 PM hand injected right femoaral 4 cc contrast tsites 02:05 PM HR=77 bpm, VHBX=159/99 mmhg, SpO2=98.0 % 02:06 PM Access obtained by percutaneous puncture. 6Fr 10cm Terumo Beacon sheath placed in Femoral artery. [id number] tsites 02:06 PM 0.035 145cm Navilyst 3mmJ wire [id number] tsites 02:07 PM 5Fr FR 4 catheter inserted over the wire [facility] tsites 02:07 PM Recorded Pressure: Ao, HR=68, Condition=Condition 1 (Aorta) Ao 169/114/139 02:08 PM RCA angiography performed in multiple views. tsites 02:08 PM Catheter removed tsites 02:08 PM 5Fr FL 4 catheter inserted over the wire [facility] tsites 02:09 PM LCA angiography performed in multiple views. tsites 02:09 PM Recorded Pressure: Ao, HR=67, Condition=Condition 1 (Aorta) Ao 182/110/141 02:09 PM Coronary Dominance: Left tsites 02:09 PM Recorded Pressure: Ao, HR=68, Condition=Condition 1 (Aorta) Ao 160/106/130 02:10 PM HR=73 bpm, SKGP=628/96 mmhg, SpO2=96.0 % 02:13 PM Recorded Pressure: Ao, HR=81, Condition=Condition 1 (Aorta) Ao 157/109/132 02:13 PM Physician reviewing films tsites 02:14 PM Catheter removed tsites 02:14 PM 5Fr Pigtail catheter inserted over the wire [facility] tsites 02:15 PM Catheter selectively placed in left ventricle tsites 02:15 PM Recorded Pressure: LV, HR=79, Condition=Condition 1 (Left Ventricle) LV 156/26/28 02:15 PM HR=80 bpm, FBWD=877/94 mmhg, SpO2=96.0 % 02:15 PM Bolus angiogram of left Ventricle complete: 10 ml/sec for a total of 30 mls tsites 02:16 PM Recorded Pressure: LV, Ao, HR=80, Condition=Condition 1 (Left Ventricle) LV 172/27/31, (Aorta) Ao 172/53/111 02:17 PM Catheter removed tsites 02:19 PM Time: 14:04 Patient comfortable and pain free: Yes tsites 02:19 PM Time: 14:04LOC: 4 = Oriented but drowsy tsites 02:20 PM HR=72 bpm, GIYQ=972/87 mmhg, SpO2=98.0 % 02:20 PM Arterial sheath pulled, Angio-seal closure device used and was Successful S/N. tsites 02:22 PM Procedure completed at 14:22 tsites 02:22 PM Sign out completed: Radiation Dose 697.92 mGy Fluoro Time: 1.7 Isovue 370 - 200ml contrast 93 ml given by Jia Leahy MD. Complications: NoneCardiac Rehab Consult needed: NoConfirmed administered medications: Yes tsites 02:22 PM Isovue 370 - 200ml,1 Bottle(s) used. tsites 02:22 PM Estimated Blood Loss: less than 20cc tsites 02:22 PM Post ECG NSR tsites 02:22 PM Post Blood Pressure 161/87 tsites 02:22 PM Information taught Cardiac Cath and Angioseal tsites 02:23 PM Education needs Procedure, Plan of Care, and Disease Process tsites 02:23 PM Learning barriers :Sedated tsites 02:23 PM Education Methods Verbal tsites 02:23 PM Education evaluation Needs further instruction tsites 02:24 PM Site status No bleeding/hematoma - Rt Groin as reported by Sites, Celeste RT (R) at 14:24 tsites 02:24 PM Opsite applied tsites 02:25 PM Delay to floor No tsites 02:25 PM Family placed in consult room. tsites 02:25 PM Complications: None tsites 02:25 PM Fluoro Time: 1.7 tsites 02:25 PM Isovue 370 - 200ml contrast 93 ml given by . tsites 02:25 PM Radiation Dose 697.92 mGy tsites 02:25 PM HR=67 bpm, XEEA=886/95 mmhg, SpO2=98.0 % 02:26 PM Lesion found in Proximal RCA. Pre Stenosis: 65 Pre [place] Flow: tsites 02:26 PM Right Coronary, Right Posterior Descending Arteries with Right Posterolateral and Acute Marginal branches with 65 % stenosis. If graft is supplying this area, 0 % stenosis tsites 02:26 PM Lesion found in LMCA. Pre Stenosis: 25 Pre [place] Flow: tsites 02:26 PM Left Main Coronary Artery with 25% stenosis tsites 02:27 PM Lesion found in Proximal Circumflex. Pre Stenosis: 50 Pre [place] Flow: tsites 02:27 PM Circumflex, Obtuse Marginal, Left Posterior Descending, and Left Posterolateral Coronary Arteries with 50 % stenosis. If graft is supplying this area, 0 % stenosis tsites 02:27 PM Vitals capture stopped. 02:28 PM 14:28 Post Pulses Bilateral DP & PT 2+ tsites 02:32 PM Report given to jackson MARTINEZ Pt taken to 2A Room #14. 14:29 tsites 02:33 PM Patient out of room: 14:33 tsites Complications Complication None None Hemodynamics Pressures Site Systolic/A Wave Diastolic/V Wave Mean AO 169 114 139 AO 182 110 141 AO 160 106 130 AO 157 109 132 LV 156 26 28 LV 172 27 31 AO 172 53 111 Post Procedure Information Blood Pressure: 161/87 mmHg Rhythm: NSR Post procedural instructions were given Closure Device Time Device Success/Fail 07/19/2017 2:21:00 PM Angio-Seal VIP Successful Site Checks Time Location Status Staff Sheath In? Note 02:24 PM Rt Groin No bleeding/hematoma Sites, Celeste RT (R) Pulses Time Site Pre-Procedure Post-Procedure Note 07/19/2017 1:48:00 PM Bilateral radial 2+ 07/19/2017 1:48:00 PM Bilateral DP & PT 2+ 2:28:00 PM Bilateral DP & PT 2+ Updated by Celeste Vaughn RT (R) on 07/19/2017 2:33:56 PM Celeste Vaughn RT electronically signed on 07/19/2017 2:34:19 PM with status of Final
[2017-07-20 05:55] LABS: Basophils # 0.1 K/mcL (0.0-0.2); Basophils % 0.6 %; Eosinophils # 0.5 K/mcL (0.0-0.6); Eosinophils % 4.6 %; Hematocrit 41.2 % (37.5-50.1); Immature Granulocytes % 0.4 % (0-4); Lymphocytes # 3.3 K/mcL (0.6-4.6); Lymphocytes % 32.7 %; Mean Corpuscular HGB Conc 33.3 g/dL (31.6-35.5); Mean Corpuscular Hemoglobin 28.6 pg (28.0-33.3); Mean Platelet Volume 9.5 fL (9.4-12.4); Monocytes # 0.8 K/mcL (0.0-1.3); Monocytes % 8.2 %; Neutrophils # 5.4 K/mcL (1.6-8.9); Platelet Count 227 K/mcL (140-400); Red Blood Count 4.79 M/mcL (4.19-5.50); Red Cell Distribution Width 13.5 % (11.5-14.5); Segmented Neutrophils % 53.5 %
[2017-07-20 05:57] LABS: Hemoglobin 13.7 g/dL (12.9-16.9)
[2017-07-20 06:01] LABS: INR 1.1; Prothrombin Time 11.5 Seconds (9.4-12.1)
[2017-07-20 06:04] LABS: Activated Partial Thrombo Time 30.4 Seconds (26.0-36.0)
[2017-07-20 06:15] LABS: Alanine Aminotransferase 19 Units/L (7-52); Albumin 3.5 g/dL (3.5-5.7); Albumin/Globulin Ratio 1.1 (1.1-2.2); Alkaline Phosphatase 75 Units/L (34-104); Aspartate Amino Transferase 16 Units/L (13-39); BUN/Creatinine Ratio 12 (6-26); Bilirubin,Total 0.4 mg/dL (0.3-1.0); Blood Urea Nitrogen 10 mg/dL (8-23); Calcium 8.8 mg/dL (8.6-10.3); Carbon Dioxide 24 mEq/L (23-29); Chloride 109 mEq/L (98-107); Chol/HDL Ratio 6.6 (0-4.9); Cholesterol 171 mg/dL (< 200); Globulin 3.1 g/dL (2.4-3.5); Glucose 96 mg/dL (70-105); HDL Cholesterol 26 mg/dL (40-59); LDL Cholesterol,Calculated 114 mg/dL (0-99); Magnesium 1.9 mg/dL (1.6-2.6); Osmolality,Calculated 287 (280-300); Potassium 4.3 mEq/L (3.5-5.1); Sodium 139 mEq/L (136-145); Total Protein 6.6 g/dL (6.4-8.9); Triglycerides 153 mg/dL (< 150); eGFR For African Americans > 60 (> 60); eGFR For Non-African Americans > 60 (> 60)
[2017-07-20] MEDS: Aspirin Enteric Coated 81 MG Tablet PO SCH (09:47)
[2017-07-20] MEDS: Metoprolol XL (24 HR) Succ 25 MG TAB.ER.24H PO SCH (09:47)
[2017-07-20 10:56] VITALS: BP 153/91
--- NOTE | 2017-07-20 13:04 | Discharge Summary ---
- NOTES TO OUTPATIENT PROVIDER Notes to Outpatient Provider: Patient with history of coronary artery disease and PCI with stent who has not been following up due to insurance issues admitted with chest pain. Underwent left heart catheterization and was found to have nonobstructive coronary artery disease. Recommended medical management. Needs better blood pressure control. Has been started on metoprolol. 2-D echo done and result is currently pending. This can be followed as outpatient. Orders not resulted at time of discharge: Pending orders 07/19/17 06:00 ECG 12 lead ECG [ECG] AM 0600 Date of Encounter: 07/20/17 Time of Encounter: 11:15 - Discharge Diagnosis (1) Unstable angina pectoris Priority: Primary Status: Resolved (2) Accidental aspirin overdose Priority: Secondary Status: Acute Qualifiers: Encounter type: initial encounter Qualified Code(s): T39.011A - Poisoning by aspirin, accidental (unintentional), initial encounter (3) Essential hypertension Priority: Secondary Status: Acute (4) Hyperlipidemia Priority: Secondary Status: Acute Qualifiers: Hyperlipidemia type: mixed hyperlipidemia Qualified Code(s): E78.2 - Mixed hyperlipidemia (5) CAD (coronary artery disease) Priority: Secondary Status: Chronic Qualifiers: Coronary Disease-Associated Artery/Lesion type: [place] artery [place] vs. transplanted heart: [place] heart Associated angina: with unstable angina Qualified Code(s): I25.110 - Atherosclerotic heart disease of [place] coronary artery with unstable angina pectoris (6) DVT prophylaxis Priority: Secondary Status: Acute Hospital course: Mr. Alvarado is a 66 year old male patient with a history of coronary artery disease , essential hypertension and hyperlipidemia who is had PCI with stent about 10 years back and has not been following up since then Presented to the ER with complaints of chest pain. He had typical features of chest pain and so cardiology was consulted. Per their evaluation, they recommended left heart catheterization. His troponins were negative. Patient underwent left heart catheterization yesterday. He was found to have moderate coronary artery disease. Recommended medical therapy and aggressive risk factor modification. He is now chest pain-free. His been placed on aspirin, statin and beta matthew. He does not have a primary care provider at this time but is willing to see someone as soon as he gets his insurance in the next couple of months. In the meantime, we will make referrals to cardiology for outpatient follow-up. Patient's blood pressure has been elevated. This will also need to be followed as an outpatient. Patient hesitant to start new medications due to prior episodes of adverse reactions. As such we recommend to continue metoprolol for now and assess his response before adding new medications. Discharge discussed with: patient, nurse - Time Spent with Patient Total time spent providing and/or coordinating discharge services: Less than 30 minutes (25 min) - Discharge Medications Prescriptions: Aspirin Enteric Coated [Aspirin EC] 81 mg PO DAILY #30 tablet. Metoprolol XL (24 HR) Succ [Toprol Xl] 12.5 mg PO DAILY #30 tab.er.24h Pravastatin Sodium [Pravachol] 20 mg PO DAILY #30 tablet Home Medications: Aspirin Enteric Coated [Aspirin EC] 81 mg PO DAILY #30 tablet. 07/20/17 [Rx] Metoprolol XL (24 HR) Succ [Toprol Xl] 12.5 mg PO DAILY #30 tab.er.24h 07/20/17 [Rx] Pravastatin Sodium [Pravachol] 20 mg PO DAILY #30 tablet 07/20/17 [Rx] Allergies/Adverse Reactions: 3 Allergy/AdvReac Type Severity Reaction Status Date / Time No Known Allergies Allergy Verified 07/19/17 01:21 Date of admission: 07/19/17 03:03 Primary care physician: PCP NONE Consults: 07/19/17 04:47 Consult to Physician [CONS] Routine Consulting Provider: Jennifer Mcknight Reason for Consult: unstable angina Call Completed: No 07/19/17 07:32 Consult to Cardiology [CONS] Routine Comment: Consulting Provider: Cardiology Sharyn Reason for Consult: ? Unstable angina Call Completed: No Discharging clinician: Catrachito Mejia Anticipated date of discharge: 07/20/17 - Constitutional Vitals: Temp Pulse Resp BP Pulse Ox 97.8 F 60 16 153/91 91 07/20/17 10:52 07/20/17 10:52 07/20/17 10:52 07/20/17 10:52 07/20/17 10:52 General appearance: Present: cooperative, A&O X 3, pleasant, no acute distress, answers questions appropriately - Respiratory Respiratory exam: Present: CTAB. Absent: accessory muscle use, rales, rhonchi, wheezes - Cardiovascular Cardiovascular exam: Present: RRR, +S1, +S2. Absent: diastolic murmur, gallop, rubs, systolic murmur - GI/Abdominal GI/Abdominal exam: Present: normal bowel sounds, soft, no peritoneal signs. Absent: distended, tenderness - Extremities Exam Extremities exam: Present: warm, radial pulses palpable and symmetrical. Absent : calf tenderness, cyanotic, pedal edema - Neurological Exam Neurological exam: Present: CN II-XII intact, oriented X3, no focal deficits. Absent: pronater drift, facial droop, speech deficit - Patient Status Disposition: Home, Self-Care Condition: Good Functional capacity at discharge: independent ambulation Overall status at discharge: patient is progressing back to baseline - Discharge Instructions Instructions: Metoprolol (By mouth), Aspirin (By mouth), Pravastatin (By mouth) , Chest Pain (DC), Chronic Hypertension (DC) Follow Up With: NONE,PCP [Primary Care Provider] - Richi Pack MD [Non-Partnered Physician] - 07/29/17 1:30 pm (Please follow up as schedule...) Jia Leahy [Partnered Physician] - (In 4-6 weeks) - Diet and Activity Activity: increase activity as tolerated Diet: low fat, low cholesterol, low salt diet - VTE Reasons for not Prescribing Prophylaxis: Not indicated-Anticoagulated or INR therapeutic
--- NOTE | 2017-07-23 14:26 | Electrocardiograph Report ---
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
== END 2017-07-20 16:18 | disposition home or self-care (01) ==
LOC: EMEROO 01:19 → 2ANU 01:19 → SUATTDRO 03:03 → 2ANU 03:24
PROVIDERS: ADMIT Pediatrics; ATTEND Internal Medicine